=== PATIENT | female | born 1975 | race Two or more races ===

== ENCOUNTER → 2017-11-02 | Outpatient (CLI) | payer BC | LOC: M LAB 08:42 | DX: M54.5 Low back pain (principal) | CPT/HCPCS: 72110 ==

== ENCOUNTER → 2019-12-12 | Outpatient (CLI) | payer BC | LOC: M LABSMTC 13:27 | PROVIDERS: ATTEND Family Medicine | DX: Z11.59 Encounter for screening for other viral diseases (principal) | CPT/HCPCS: C9803; U0003 ==

== ENCOUNTER → 2021-01-29 | Outpatient (REF) | payer BC | LOC: M LAB REF 21:46 | PROVIDERS: ATTEND Physician Assistant Medical | DX: R51.9 Headache, unspecified (principal); R53.83 Other fatigue ==

== ENCOUNTER → 2022-08-30 | Outpatient (CLI) | payer BC ==
[2022-08-30 14:35] LABS: ALBUMIN 3.8 G/DL (3.2-5.2); ALKALINE PHOSPHATASE 86 U/L (46-116); ALT/SGPT 22 U/L (7.0-40); AST/SGOT 19 U/L (<34); BILIRUBIN,TOTAL 0.5 MG/DL (0.3-1.2); BLOOD UREA NITROGEN 11 MG/DL (9-23); CALCIUM LEVEL 8.8 MG/DL (8.5-10.1); CARBON DIOXIDE LEVEL 29 MMOL/L (20-31); CHLORIDE LEVEL 104 MMOL/L (98-107); CHOLESTEROL LEVEL 194 MG/DL (<200); CHOLESTEROL RISK RATIO 3.37 (<5); GLOMERULAR FILTRATION RATE > 60.0 (>58); GLUCOSE, FASTING 78 MG/DL (60-100); HDL CHOLESTEROL 57.4 MG/DL (>40); NON-HDL-C 136.6 MG/DL; POTASSIUM SERUM 4.4 MMOL/L (3.5-5.1); SODIUM LEVEL 139 MMOL/L (136-145)
[2022-08-30 15:15] LABS: FREE T4 1.32 NG/DL (0.89-1.76); THYROID STIMULATING HORMONE 5.574 uIU/ML (0.55-4.78)
[2022-08-30 18:40] LABS: LDL CHOLESTEROL 123.4 MG/DL (<100); TOTAL PROTEIN 6.2 G/DL (5.7-8.2); TRIGLYCERIDES LEVEL 66 MG/DL (<150)
== END ==
LOC: M PLALAB 10:29
PROVIDERS: ATTEND Nurse Practitioner Family
DX: M79.672 Pain in left foot (principal); E03.9 Hypothyroidism, unspecified; E78.2 Mixed hyperlipidemia; M19.072 Primary osteoarthritis, left ankle and foot

== ENCOUNTER → 2023-02-04 | Outpatient (REF) | payer BC, OTHER | LOC: M LAB REF 12:51 | PROVIDERS: ATTEND Nurse Practitioner Family | DX: Z12.4 Encounter for screening for malignant neoplasm of cervix (principal); R87.610 Atypical squamous cells of undetermined significance on cytologic smear of cervix (ASC-US) | CPT/HCPCS: 87624; G0123 ==